=== PATIENT | female | born 1975 | race Caucasian/White ===

== ENCOUNTER 2017-10-31 20:57 | Inpatient (IN) | payer MEDICAID ==
[~2017-10-31] VITALS: Ht 180.3 cm; Wt 93.8 kg
[~2017-10-31 20:57] MED LIST: BACL10TA PO; BUTA1CAP PO; DEXTROSE 50% IN WATER 50 ML VIAL(D50) IV PUSH PRN; GABA300C5 PO; GLUCAGON 1 MG/ML VIAL OTHER PRN; HYDR1CAP30 PO; MAGNESIUM HYDROXIDE SUSP 30 ML CUP PO PRN; NALOXONE HCL 0.4 MG/ML AMP IV PUSH PRN; ONDANSETRON HCL 4 MG/2 ML VIAL IVP PRN; RELP20TA PO; SERT-129 PO; SODIUM CHLORIDE 0.9% FLUSH 10 ML FLUSH IV FLUSH PRN; TOPI50TA7 PO
[2017-10-31 20:58] VITALS: BP 139/77; PULSE 71; RESP 20; TEMP 97.9; O2SAT 96
[2017-10-31] MEDS ORDERED: SODIUM CHLORIDE 0.9% FLUSH 10 ML FLUSH IV FLUSH SCH (21:00)
[2017-10-31] MEDS ORDERED: ATORVASTATIN 10 MG TAB PO SCH (21:30)
[2017-10-31] MEDS: SODIUM CHLORIDE 0.9% FLUSH 10 ML FLUSH IV FLUSH SCH (22:45)
[2017-10-31] MEDS: SODIUM CHLOR 0.9% 1000 ML INJ 1,000 ML IV SCH (22:45)
[2017-10-31 23:00] VITALS: PULSE 67
[2017-10-31] MEDS: INSULIN ASPART SUPPLEMENTAL SCALE SQ SCH (23:00)
[2017-11-01] VITALS: BP 136/82; PULSE 67; RESP 18; TEMP 98.1; O2SAT 100
[2017-11-01] MEDS ORDERED: ACETAMIN 325 MG/BUTALBITAL 50 MG/CAFFEINE 40 MG TAB PO ONE (00:45)
[2017-11-01 04:00] VITALS: BP 133/82; PULSE 74; RESP 18; TEMP 98.5; O2SAT 100
[2017-11-01] MEDS ORDERED: hydrOXYzine PAMOATE 25 MG CAP PO ONE (04:15)
[2017-11-01] MEDS ORDERED: SUMAtriptan SUCCINATE 20 MG/ACT NASAL SPRAY NASAL PRN (04:15)
[2017-11-01 06:56] LABS: AUTOMATED NEUTROPHIL # 2.2 TH/MM3 (1.8-7.7); EOSINOPHIL # 0.3 TH/MM3 (0-0.4); EOSINOPHIL % 5.7 % (0.0-4.0); HEMATOCRIT 34.5 % (35.0-46.0); HEMOGLOBIN 11.2 GM/DL (11.6-15.3); LYMPH % 40.4 % (9.0-44.0); LYMPHOCYTE # 1.9 TH/MM3 (1.0-4.8); MEAN CELL VOLUME 83.8 FL (80.0-100.0); MEAN CORPUSCULAR HEMOGLOBIN 27.1 PG (27.0-34.0); MEAN CORPUSCULAR HGB CONC 32.4 % (32.0-36.0); MEAN PLATELET VOLUME 7.5 FL (7.0-11.0); MONO % 9.2 % (0.0-8.0); MONOCYTE # 0.4 TH/MM3 (0-0.9); NEUT % 43.7 % (16.0-70.0); PLATELET COUNT 327 TH/MM3 (150-450); RED BLOOD COUNT 4.12 MIL/MM3 (4.00-5.30); RED CELL DISTRIBUTION WIDTH 26.2 % (11.6-17.2); WHITE BLOOD COUNT 4.8 TH/MM3 (4.0-11.0)
[2017-11-01 06:57] LABS: CHLORIDE 107 MEQ/L (98-107); SODIUM (NA) 140 MEQ/L (136-145)
[2017-11-01 07:01] LABS: ALBUMIN 3.3 GM/DL (3.4-5.0); BLOOD UREA NITROGEN 7 MG/DL (7-18); GLUCOSE,RANDOM 77 MG/DL (74-106)
[2017-11-01 07:03] LABS: BICARBONATE 24.9 MEQ/L (21.0-32.0); CALCIUM 8.1 MG/DL (8.5-10.1)
[2017-11-01 07:04] LABS: ALT (GPT) 16 U/L (10-53); AST (GOT) 15 U/L (15-37); CREATININE 0.51 MG/DL (0.50-1.00); GLOMERULAR FILTRATION RATE 133 ML/MIN (>89)
[2017-11-01 07:05] LABS: TOTAL BILIRUBIN ADULT LESS THAN 0.1 MG/DL (0.2-1.0)
[2017-11-01 07:07] LABS: ALKALINE PHOSPHATASE 83 U/L (45-117)
[2017-11-01] MEDS: SODIUM CHLOR 0.9% 1000 ML INJ 1,000 ML IV SCH ×2 (07:30→17:30)
[2017-11-01 08:00] VITALS: BP 141/93; PULSE 78; RESP 16; TEMP 97.3; O2SAT 98
[2017-11-01] MEDS: INSULIN ASPART SUPPLEMENTAL SCALE SQ SCH ×3 (08:00→17:00)
[2017-11-01 08:15] LABS: OVALOCYTES 1+ (NORMAL)
[2017-11-01 08:29] LABS: CHOLESTEROL 260 MG/DL (120-200); TRIGLYCERIDES 131 MG/DL (42-150)
[2017-11-01 08:31] LABS: CHOLESTEROL/ HDL RATIO 4.99 RATIO; HDL CHOLESTEROL 52.1 MG/DL (40.0-60.0); LDL CHOLESTEROL 182 MG/DL (0-99)
[2017-11-01] MEDS: SODIUM CHLORIDE 0.9% FLUSH 10 ML FLUSH IV FLUSH SCH (09:00)
[2017-11-01] MEDS ORDERED: ASPIRIN 81 MG CHEW TAB PO SCH (09:00)
--- NOTE | 2017-11-01 09:29 | RADRPT ---
EXAM DATE/TIME: 11/01/2017 08:44 [facility] COMPARISON: No previous studies available for comparison. INDICATIONS : Cerebrovascular accident. MEDICAL HISTORY : Migraine. SURGICAL HISTORY : Gastric bypass. section. ENCOUNTER: Initial ACUITY: 1 day PAIN SCORE: 0/10 LOCATION: Bilateral neck PEAK SYSTOLIC VELOCITIES (cm/sec): ICA/CCA RATIO: Right: 0.8 Left: 1.1 ICA: Right: 74 Left: 98 CCA: Right: 92 Left: 93 ECA: Right: 79 Left: 75 VERTEBRAL: Right: 40 antegrade Left: 68 antegrade Elevated flow velocities and ICA/CCA ratios have been found to correlate with increased degrees of vessel stenosis, calculated as percentage of diameter relative to a normal segment of distal ICA/CCA FINDINGS: RIGHT CAROTID: No significant stenosis is visualized. The waveforms are within normal limits. LEFT CAROTID: No significant stenosis is visualized. The waveforms are within normal limits. VERTEBRAL ARTERIES: Antegrade flow is seen in both vertebral arteries. MISCELLANEOUS: None. CONCLUSION: Normal examination for a patient of this age. Micah Blanchard MD on November 01, 2017 at 9:27 Board Certified Radiologist. This report was verified electronically.
[2017-11-01] MEDS ORDERED: hydrOXYzine PAMOATE 25 MG CAP PO SCH (09:30)
--- NOTE | 2017-11-01 09:35 | HHI.HP ---
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 Per patient and ED documentation, the patient [place], after that, she passed out and cannot remember exactly what happened. She remembered being awakened and brought to the first aid center. Since then, allegedly per patient 's , the patient has been acting weird. She ate 2 slices of pizza which she doesn't usually do. She was brought home, vomited, put her underwear on her head and asking to go multiple times if he wants to go to the bathroom. There was no note of a port rolling of eyeballs, incontinence or tonic-clonic movements. Per , this has happened before. She cannot remember exactly what happened yesterday but recall the story as it was told her. Presently, she is very anxious because she has missed her medications from yesterday. She has a severe headache. Patient denies any chest pain, shortness of breath, nausea, dysuria, frequency, urgency, neck pain or stiffness, blurring of vision , numbness, dysarthria, or focal weakness. She also further denies any fever, cough or shortness of breath. She is on multiple medications for her complex migraine and she follows up with a neurologist Dr. Wellington Review of Systems ROS Limitations: Other (All other pertinent systems were reviewed and are negative.) Past Family Social History Past Medical History Pineal cyst Complex migraine Past Surgical History Gastric bypass Reported Medications Relpax (Eletriptan) 20 Mg Tab 20 Mg PO ONCE PRN Fioricet (Oupqyreloy-Jzdcxrqmlqjvx-Rxgfjleo) 50-300-40 Mg Cap 1 Cap PO Q4H PRN Topiramate 50 Mg Tab 50 Mg PO HS Baclofen 10 Mg Tab 40 Mg PO HS Sertraline (Sertraline HCl) 100 Mg Tab 200 Mg PO HS Hydroxyzine Pamoate 25 Mg Cap 25 Mg PO BID Gabapentin 300 Mg Cap 1,500 Mg PO HS Allergies: Coded Allergies: No Known Allergies (Unverified , 10/31/17) Family History Father has questionable history of seizures, diabetes Mother has Thyroid issues. Social History Patient denies smoking, significant alcohol intake or use of any illicit drugs. Physical Exam Vital Signs Vital Signs Date Time Temp Pulse Resp B/P (MAP) Pulse Ox O2 Delivery O2 Flow Rate FiO2 11/01/17 08:00 97.3 78 16 141/93 (109) 98 11/01/17 04:00 98.5 74 18 133/82 (99) 100 11/01/17 00:00 98.1 67 18 136/82 (100) 100 10/31/17 23:00 67 10/31/17 20:58 97.9 71 20 139/77 (97) 96 Physical Exam GENERAL: Not in acute distress, well-nourished. HEAD: Atraumatic. Normocephalic. No temporal or scalp tenderness. EYES: PERRL, full EOMs, no jaundice, nonicteric, pink conjunctivae without injection, moist mucosa ENT: Nose without bleeding, purulent drainage. Airway patent. NECK: Trachea midline, no mass, no obvious thyromegaly. CARDIOVASCULAR: Regular rate and rhythm without murmurs, gallops, or rubs. RESPIRATORY: Clear to auscultation with normal respiratory effort. Breath sounds equal bilaterally. No use of accessory muscles of respiration. GASTROINTESTINAL: Abdomen soft, normal bowel sounds, non-tender, nondistended. No guarding. HERMELINDA and exam deferred. MUSCULOSKELETAL: Extremities without clubbing, cyanosis, or edema. Distal pulses intact, 2+ bilaterally. INTEGUMENTARY: Warm and dry, no rash of generalized distribution. NEUROLOGICAL: Alert, awake and oriented x3. Remote memory intact. Immediate memory intact. Recent memory deficient. Concentration, judgment and higher function WNL. No cranial deficits: Pupils equal round reactive to light and accommodation, no facial asymmetry, shoulder shrug strong and symmetric, gross hearing intact, tongue midline. Moves all 4 extremities, muscle strength testing 5 over 5 all 4 extremities. Pronator drift negative, digiti quinti minimi sign negative. No sensory deficits with touch sensation. Babinski downgoing, clonus deferred. Negative meningeal signs. Gait testing deferred PSYCHIATRIC: Anxious. Laboratory Laboratory Tests Test 11/01/17 05:22 White Blood Count 4.8 Red Blood Count 4.12 Hemoglobin 11.2 Hematocrit 34.5 Mean Corpuscular Volume 83.8 Mean Corpuscular Hemoglobin 27.1 Mean Corpuscular Hemoglobin Concent 32.4 Red Cell Distribution Width 26.2 Platelet Count 327 Mean Platelet Volume 7.5 Neutrophils (%) (Auto) 43.7 Lymphocytes (%) (Auto) 40.4 Monocytes (%) (Auto) 9.2 Eosinophils (%) (Auto) 5.7 Basophils (%) (Auto) 1.0 Neutrophils # (Auto) 2.2 Lymphocytes # (Auto) 1.9 Monocytes # (Auto) 0.4 Eosinophils # (Auto) 0.3 Basophils # (Auto) 0.0 CBC Comment AUTO DIFF Differential Comment AUTO DIFF CONFIRMED Platelet Estimate NORMAL Platelet Morphology Comment NORMAL Ovalocytes 1+ Blood Urea Nitrogen 7 Creatinine 0.51 Random Glucose 77 Total Protein 7.0 Albumin 3.3 Calcium Level 8.1 Alkaline Phosphatase 83 Aspartate Amino Transf (AST/SGOT) 15 Alanine Aminotransferase (ALT/SGPT) 16 Total Bilirubin LESS THAN 0.1 Sodium Level 140 Potassium Level 3.5 Chloride Level 107 Carbon Dioxide Level 24.9 Anion Gap 8 Estimat Glomerular Filtration Rate 133 Triglycerides Level 131 Cholesterol Level 260 LDL Cholesterol 182 HDL Cholesterol 52.1 Cholesterol/HDL Ratio 4.99 Result Diagram: 11/01/1752111/01/[address] scan of the head unremarkable Caprini VTE Risk Assessment Caprini VTE Risk Assessment: No/Low Risk (score <= 1) Caprini Risk Assessment Model Point Value = 1 Point Value = 2 Point Value = 3 Point Value = 5 Age 41-60 Minor surgery BMI > 25 kg/m2 Swollen legs Varicose veins or History of unexplained or recurrent spontaneous Oral contraceptives or hormone replacement Sepsis (< 1 month) Serious lung disease, including pneumonia (< 1 month) Abnormal pulmonary function Acute myocardial infarction Congestive heart failure (< 1 month) History of inflammatory bowel disease Medical patient at bed rest Age 61-74 Arthroscopic surgery Major open surgery (> 45 min) Laparoscopic surgery (> 45 min) Malignancy Confined to bed (> 72 hours) Immobilizing plaster cast Central venous access Age >= 75 History of VTE Family history of VTE Factor V Leiden Prothrombin [id number] Lupus anticoagulant Anticardiolipin antibodies Elevated serum homocysteine Heparin-induced thrombocytopenia Other congenital or acquired thrombophilia Stroke (< 1 month) Elective arthroplasty Hip, pelvis, or leg fracture Acute spinal cord injury (< 1 month) Prophylaxis Regimen Total Risk Factor Score Risk Level Prophylaxis Regimen 0-1 Low Early ambulation 2 Moderate Order ONE of the following: *Sequential Compression Device (SCD) *Heparin 5000 units SQ BID 3-4 Higher Order ONE of the following medications: *Heparin 5000 units SQ TID *Enoxaparin/Lovenox 40 mg SQ daily (WT < 150 kg, CrCl > 30 mL/min) *Enoxaparin/Lovenox 30 mg SQ daily (WT < 150 kg, CrCl > 10-29 mL/min) *Enoxaparin/Lovenox 30 mg SQ BID (WT < 150 kg, CrCl > 30 mL/min) AND/OR *Sequential Compression Device (SCD) 5 or more Highest Order ONE of the following medications: *Heparin 5000 units SQ TID (Preferred with Epidurals) *Enoxaparin/Lovenox 40 mg SQ daily (WT < 150 kg, CrCl > 30 mL/min) *Enoxaparin/Lovenox 30 mg SQ daily (WT < 150 kg, CrCl > 10-29 mL/min) *Enoxaparin/Lovenox 30 mg SQ BID (WT < 150 kg, CrCl > 30 mL/min) AND *Sequential Compression Device (SCD) Assessment and Plan Assessment and Plan This is a 42-year-old female admitted for altered mental status, likely secondary to complex migraine with aura Altered mental status-likely secondary to complex migraine with aura, no focal deficits at all, CT scan of the head unremarkable, no risk factors for stroke. Follow-up MRI/MRA results, if unremarkable, she can be discharged to follow-up with her neurologist who closely sees her as outpatient. Continue current medications from home. No AEDs. Carotid ultrasound unremarkable. Check urinalysis. Pseudo-hypocalcemia- albumin-corrected calcium is 8.7. DVT prophylaxis: Low risk. Discussed Condition With RN. If MRI/MRA and urinalysis are negative, may be discharged today. Shawanda Taylor MD Nov 01, 2017 09:35
[2017-11-01] MEDS ORDERED: HYDROmorphone HCL PF 2 MG/ML VIAL IV PUSH ONE (10:00)
[2017-11-01] MEDS ORDERED: ELETRIPTAN 20 MG PO PRN (10:00)
[2017-11-01] MEDS: ACETAMIN 325 MG/BUTALBITAL 50 MG/CAFFEINE 40 MG TAB PO PRN ×2 (10:00→17:58)
[2017-11-01] MEDS ORDERED: TOPIRAMATE 25 MG TAB PO ONE (10:15)
[2017-11-01] MEDS ORDERED: SERTRALINE HCL 100 MG TAB PO ONE (10:15)
[2017-11-01] MEDS ORDERED: GABAPENTIN 300 MG CAP PO ONE (10:45)
[2017-11-01 12:00] VITALS: BP 128/88; PULSE 79; RESP 15; TEMP 97.8; O2SAT 100
--- NOTE | 2017-11-01 12:04 | RADRPT ---
EXAM DATE/TIME: 11/01/2017 11:25 [facility] COMPARISON: CT BRAIN W/O CONTRAST, October 31, 2017, 14:41. INDICATIONS : Altered mental status. CVA. MEDICAL HISTORY : Migraines. SURGICAL HISTORY : Gastric bypass. ENCOUNTER: Initial ACUITY: 2 day PAIN SCORE: 8/10 LOCATION: head TECHNIQUE: Multiplanar, multisequence MRI of the brain was performed without contrast. FINDINGS: CEREBRUM: The ventricles are normal for age. No evidence of midline shift, mass lesion, hemorrhage or acute in farction. No extraaxial fluid collections are seen. The pituitary gland and suprasellar cistern are normal in configuration. WHITE MATTER: No significant signal abnormalities are seen in the white matter. POSTERIOR FOSSA: The cerebellum and brainstem are intact. The 4th ventricle is midline. The cerebellopontine angle is unremarkable. The cerebellar tonsils are normal in position. DIFFUSION IMAGING: No focal areas of restricted diffusion are seen. No evidence of acute infarction. EXTRACRANIAL: The visualized portions of the orbits and paranasal sinuses are unremarkable. CONCLUSION: Unremarkable MRI brain. Jonn Quezada MD on November 01, 2017 at 12:01 Board Certified Radiologist. This report was verified electronically.
--- NOTE | 2017-11-01 12:05 | RADRPT ---
EXAM DATE/TIME: 11/01/2017 11:25 [facility] COMPARISON: No previous studies available for comparison. INDICATIONS : CVA. MEDICAL HISTORY : Migraines SURGICAL HISTORY : Gastric bypass. ENCOUNTER: Initial ACUITY: 2 day PAIN SCORE: 8/10 LOCATION: head Please note a normal MRA of the brain does not entirely exclude the possibility of a small aneurysm, nor the possibility of distal intracranial vessel disease. TECHNIQUE: 3D time of flight MRA was performed. Source images, multiplanar STS MIP, and 3D volume MIP reconstru ctions were reviewed. FINDINGS: There is excellent visualization of the major intracranial arteries out to the second-order branch ve ssels. There is no evidence for aneurysm, vessel truncation or stenosis, and no evidence for vascula r malformation. Dominant left vertebral artery. Small anterior communicating artery. Posterior commun icating arteries are not visualized. CONCLUSION: 1. No large vessel stenosis or aneurysm. Jonn Quezada MD on November 01, 2017 at 12:03 Board Certified Radiologist. This report was verified electronically.
[2017-11-01 15:45] LABS: BILIRUBIN, URINE NEG (NEG); BLOOD, URINE NEG (NEG); GLUCOSE,URINE NEG (NEG); KETONE, URINE NEG (NEG); NITRITE,URINE NEG (NEG); PH, URINE 6.5 (5.0-8.5); URINE COLOR YELLOW (YELLW/STRAW); URINE LEUKOCYTE ESTERASE NEG (NEG)
[2017-11-01 16:00] LABS: BACTERIA, URINE FEW /hpf; MUCUS URINE FEW /lpf (OCC); SQUAMOUS EPITHELIAL CELL URINE 0-5 /hpf (0-5); WBC, URINE 0-2 /hpf (0-5)
[2017-11-01 16:20] LABS: HEMOGLOBIN A1C 5.5 % (4.3-6.0)
[2017-11-01] MEDS ORDERED: TOPIRAMATE 25 MG TAB PO SCH ×2 (21:00)
[2017-11-01] MEDS ORDERED: SERTRALINE HCL 100 MG TAB PO SCH (21:00)
[2017-11-01] MEDS ORDERED: BACLOFEN 20 MG TAB PO SCH (21:00)
[2017-11-01] MEDS ORDERED: GABAPENTIN 300 MG CAP PO SCH (21:00)
[2017-11-02] MEDS ORDERED: TOPIRAMATE 25 MG TAB PO SCH (21:00)
[2017-11-02] MEDS ORDERED: GABAPENTIN 300 MG CAP PO SCH (21:00)
[2017-11-02] MEDS ORDERED: SERTRALINE HCL 100 MG TAB PO SCH (21:00)
== END 2017-11-01 19:40 | disposition home or self-care (01) | DRG 103 ==
LOC: PHEDDLT 20:57 → PH3A 20:58
PROVIDERS: ADMIT Hospitalist; ATTEND Hospitalist
DX: G43.109 Migraine with aura, not intractable, without status migrainosus (principal); E83.51 Hypocalcemia; Z98.84 Bariatric surgery status
CPT/HCPCS: 70450; 70544; 70551; 80053; 80061; 80307; 81001; 82140; 82550; 82948; 83036; 84443; 85025; 93005; 93880; 99285; J1170; J7030; Q0177